=== PATIENT | female | born 1995 | race Caucasian/White ===

== ENCOUNTER → 2016-05-10 | Outpatient (CLI) | payer BC | LOC: RAD 16:42 | PROVIDERS: ATTEND Family Medicine | DX: N20.0 Calculus of kidney (principal) | CPT/HCPCS: 76770 ==

== ENCOUNTER 2016-08-30 14:40 | Emergency (ER) | payer BC ==
--- NOTE | 2016-08-30 15:34 | ER Document Report ---
ED Medical Screen (RME) - General Mode of Arrival: Ambulatory Information source: Patient TRAVEL OUTSIDE OF THE [place] IN LAST 30 DAYS: No - General Chief Complaint: Abdominal Pain Stated Complaint: ABDOMINAL PAIN Time Seen by Provider: 08/30/16 15:13 Notes: Pt presents today with complaints of left sided pelvic pain x2 days. Pt has a history of ovarian cysts and she states this feels similar to her previous cysts. Pt states the pain began suddenly and has progressed since onset. Pt states she is on the depo shot, last receiving one on August 09. Pt denies vomiting, diarrhea, or dysuria. (CICI PATEL) - Related Data Allergies/Adverse Reactions: No Known Allergies Allergy (Unverified 08/30/16 14:43) Past Medical History Renal/ Medical History: Denies: Hx Peritoneal Dialysis Review of Systems - Review of Systems Female Genitourinary: See HPI, Other - left sided pelvic pain Physical Exam - Abdominal Tenderness: Tender - Left pelvic ttp Course - Re-evaluation Re-evalutation: 08/30/16 19:06 I personally performed the services described in the documentation, reviewed and edited the documentation which was dictated to the scribe in my presence, and it accurately records my words and actions. (LUCY CUNNINGHAM) - Vital Signs Vital signs: Temp Pulse Resp BP Pulse Ox 98.3 F 69 16 118/67 97 08/30/16 19:01 08/30/16 19:01 08/30/16 19:01 08/30/16 19:01 08/30/16 19:01 Scribe Documentation - Scribe Written by Hailye:: Michaela Maxwell, 08/30/2016 1553 acting as scribe for :: Ana
[2016-08-30 15:55] LABS: AMORPHOUS SEDIMENT,URINE TRACE /HPF; APPEARANCE,URINE CLOUDY; BILIRUBIN,URINE NEGATIVE (NEGATIVE); GLUCOSE, URINE NEGATIVE (NEGATIVE); KETONES,URINE NEGATIVE (NEGATIVE); LEUKOCYTE ESTERASE,URINE NEGATIVE (NEGATIVE); NITRITE,URINE NEGATIVE (NEGATIVE); PROTEIN,URINE NEGATIVE (NEGATIVE); URINE SPECIFIC GRAVITY 1.011; UROBILINOGEN,URINE NEGATIVE mg/dL (<2.0)
--- NOTE | 2016-08-30 19:03 | ER Document Report ---
ED General - General Chief Complaint: Abdominal Pain Stated Complaint: ABDOMINAL PAIN Time Seen by Provider: 08/30/16 15:13 Mode of Arrival: Ambulatory Information source: Patient Notes: This is a 20-year-old female with a history of multiple ovarian cysts, adhesions and constipation. The patient presents with lower abdominal pain. The patient denies any vaginal discharge, vaginal bleeding. The patient denies any burning on urination. The patient denies fever, chills. TRAVEL OUTSIDE OF THE [place] IN LAST 30 DAYS: No - HPI Onset: Last week Onset/Duration: Gradual Quality of pain: Dull Severity: Moderate Pain Level: 2 Associated symptoms: denies: Chest pain, Fever, Shortness of breath Exacerbated by: Denies Relieved by: Denies Similar symptoms previously: Yes Recently seen / treated by doctor: No - Related Data Allergies/Adverse Reactions: No Known Allergies Allergy (Unverified 08/30/16 14:43) Home Medications: Current Home Medications No Home Medications 08/30/16 [History] Past Medical History - General Information source: Patient - Social History Smoking Status: Current Every Day Smoker Cigarette use (# per day): Yes Chew tobacco use (# tins/day): No Smoking Education Provided: No - half pack per day Frequency of alcohol use: Social Drug Abuse: None Lives with: Family Family History: Reviewed & Not Pertinent Patient has suicidal ideation: No Patient has homicidal ideation: No - Past Medical History Cardiac Medical History: Reports: None Pulmonary Medical History: Reports: None EENT Medical History: Reports: None Neurological Medical History: Reports: None Endocrine Medical History: Reports: None Renal/ Medical History: Reports: Hx Ovarian Cysts Malignancy Medical History: Reports: None GI Medical History: Reports: Other - Constipation Musculoskeltal Medical History: Reports None Skin Medical History: Reports None Psychiatric Medical History: Reports: None Traumatic Medical History: Reports: None Infectious Medical History: Reports: None Past Surgical History: Reports: Hx Gynecologic Surgery - Multiple laparoscopic surgeries for ovarian cysts - Immunizations Hx Diphtheria, Pertussis, Tetanus Vaccination: Yes Review of Systems - Review of Systems Constitutional: denies: Chills, Fever EENT: No symptoms reported Cardiovascular: No symptoms reported Respiratory: No symptoms reported Gastrointestinal: See HPI Genitourinary: No symptoms reported Female Genitourinary: No symptoms reported Musculoskeletal: No symptoms reported Skin: No symptoms reported Hematologic/Lymphatic: No symptoms reported Neurological/Psychological: No symptoms reported Physical Exam - Vital signs Vitals: Temp Pulse Resp BP Pulse Ox 98.1 F 69 18 120/73 99 08/30/16 14:43 08/30/16 14:43 08/30/16 14:43 08/30/16 14:43 08/30/16 14:43 Notes: Physical exam: GENERAL: 20-year-old female, alert and oriented 3, no acute distress HEAD: Normocephalic. EYES: Extraocular movements intact, sclera anicteric, conjunctiva are normal. ENT: Moist mucous membranes. NECK: Normal range of motion, supple LUNGS: Breath sounds clear to auscultation bilaterally and equal. HEART: Regular rate and rhythm without murmurs, rubs or gallops. ABDOMEN: Soft, normoactive bowel sounds. The patient does have mild left adnexal tenderness without rebound or guarding. No masses appreciated. EXTREMITIES: Normal range of motion, no pitting or edema. No clubbing or cyanosis. NEUROLOGICAL: Cranial nerves II through XII grossly intact. Normal speech, moving all extremities PSYCH: Normal mood, normal affect. Bedside ultrasound: No hydronephrosis Course - Re-evaluation Re-evalutation: 08/30/16 19:06 Note: At a long conversation with the patient and her father who is at the bedside. The patient does have a history of multiple ovarian cysts. We are not able to see the ovaries but I have explained to patient that often times when an ovary gets big enough it will push bowel away and become easier to see on ultrasound. 08/30/16 19:06 Repeat exam shows a very soft abdomen without any peritoneal findings. KUB showed a lot of constipation and bilateral renal calculi. I did a bedside ultrasound to look for any hydronephrosis and I did not see any. Based upon this, and had a long discussion with her about changing her dietary habits (she eats a lot of processed food she admits). I will give her some mag citrate to drink slowly to move her bowels. I will have her follow-up with a non destructive testing inspector in the area (she is new to the area) and I will have her follow up with a GI doctor for the possibility of irritable bowel. In the meantime, as mentioned above, she is given a work on her diet and I've advised her to return to the emergency room for worsening pain. - Vital Signs Vital signs: Temp Pulse Resp BP Pulse Ox 97.7 F 78 16 109/74 98 08/30/16 19:46 08/30/16 19:46 08/30/16 19:46 08/30/16 19:46 08/30/16 19:46 - Diagnostic Test Radiology reviewed: Image reviewed, Reports reviewed - Pelvic ultrasound shows no evidence of pathology. They were not able to see the ovaries because of bowel gas and constipation. Case you be shows a lot of constipation Discharge - Discharge Clinical Impression: pelvic pain, constipation Condition: Stable Disposition: HOME, SELF-CARE Additional Instructions: Recommendations: As we discussed, I would like you to drink the magnesium citrate slowly over the next several hours. I would like you to try to convert your diet to a less processed food diet. I like you to try probiotics: Activia twice daily. This is sold next to the [employer] and supermarkets. I would like you to follow-up with a GI doctor for the possibility of irritable bowel. I would like you to establish a non destructive testing inspector as well: I left the number for Dr. Richey. Return to the emergency room for worsening pain, fever (temperature greater than 100.5) or any concerns he getting worse. Referrals: XAVI RICHEY MD [ACTIVE STAFF] - Follow up as needed (This is the number of a non destructive testing inspector) JANE LINK MD [ACTIVE STAFF] - Follow up as needed (This is the number the GI doctor)
[2016-08-30] MEDS ORDERED: MAGNESIUM CITRATE 296 ML BOTTLE PO ONE (19:09)
[2016-08-30 19:49] VITALS: BP 109/74
== END 2016-08-30 19:46 | disposition home or self-care (01) ==
LOC: ER 14:40
DX: R10.2 Pelvic and perineal pain (principal); K59.00 Constipation, unspecified; R10.9 Unspecified abdominal pain; F17.210 Nicotine dependence, cigarettes, uncomplicated
CPT/HCPCS: 99284; 81025; 81001; 74000; 76830; J3490

== ENCOUNTER 2017-05-30 07:48 | Emergency (ER) | payer BC ==
[2017-05-30] MEDS ORDERED: HYDROCODONE/ACETAMINOPHEN 5-325 MG TABLET PO ONE (08:17)
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
--- NOTE | 2017-05-30 08:49 | RADIOLOGY REPORT (SQ) ---
EXAM DESCRIPTION: HAND RIGHT 3 VIEWS COMPLETED DATE/TIME: 05/30/2017 8:34 am REASON FOR STUDY: hand injury COMPARISON: None. EXAM PARAMETERS: NUMBER OF VIEWS: Three views. TECHNIQUE: AP, lateral and oblique radiographic images acquired of the right hand. LIMITATIONS: None. FINDINGS: MINERALIZATION: Normal. BONES: Fracture of the 5th metatarsal head without intra-articular extension. Mild ventral tilt. JOINTS: No effusions. SOFT TISSUES: No soft tissue swelling. No foreign body. OTHER: No other significant finding. IMPRESSION: Fracture of the 5th metatarsal head. TECHNICAL DOCUMENTATION: JOB ID: [id number] [employer]- All Rights Reserved
[2017-05-30 09:19] VITALS: BP 121/82
== END 2017-05-30 09:19 | disposition home or self-care (01) ==
LOC: ER 07:48
PROC: 2W3CX1Z Immobilization of Right Lower Arm using Splint (ICD-10-PCS; principal; 2017-05-30)
DX: S62.339A Displaced fracture of neck of unspecified metacarpal bone, initial encounter for closed fracture (principal); R03.0 Elevated blood-pressure reading, without diagnosis of hypertension; M79.641 Pain in right hand; M79.89 Other specified soft tissue disorders; F17.200 Nicotine dependence, unspecified, uncomplicated; W50.0XXA Accidental hit or strike by another person, initial encounter
CPT/HCPCS: 99283

== ENCOUNTER → 2017-06-08 | Outpatient (CLI) | payer BC ==
--- NOTE | 2017-06-09 07:24 | RADIOLOGY REPORT (SQ) ---
EXAM DESCRIPTION: MRI LT UPPER JOINT WITHOUT COMPLETED DATE/TIME: 06/08/2017 6:09 pm REASON FOR STUDY: PAIN IN LEFT WRIST M25.532 PAIN IN LEFT WRIST COMPARISON: 05/30/2017 radiographs of the hand. TECHNIQUE: Right wrist images acquired and stored on PACS. Multiplanar images include fat sensitive sequences as T1, fluid sensitive sequences as FST2/STIR, cartilage sensitive sequences as FSPD, grad ient echo sequences. LIMITATIONS: None. FINDINGS: BONE MARROW: Marrow edema in the distal pole of the scaphoid. Slightly linear signal on T 1 sequences suggestive of nondisplaced subtle fracture. Marrow signal otherwise normal. CARPAL ALIGNMENT AND ARTICULATION: Normal congruity of sigmoid notch at level of distal RUJ without p ositive or negative ulnar variance. Normal capitolunate angle. No widening of scapholunate articulati on. EFFUSION: None noted. No loose bodies. SCAPHOLUNATE LIGAMENT: Intact without tear. LUNATE-TRIQUETRAL LIGAMENT: Intact without tear. TFC COMPLEX: Radial and ulnar attachments normal. Meniscus intact. Extensor carpi ulnaris tendon norm al without tendinopathy. EXTRINSIC LIGAMENTS AND DISTAL RADIO-ULNAR JOINT: Dorsal and volar distal RUJ intact without subluxat ion of the distal ulna. 1-6 EXTENSOR COMPARTMENTS: Mild deep dorsal fluid overlying the level of the scaphoid. This remains deep to the flexor tendons. CARPAL TUNNEL AND MEDIAN NERVE: Normal volume and morphology of the carpal tunnel proximally at the l evel of the radiocarpal joint and distally at the hook of the hamate. No thickening or signal alterat ion of the median nerve. OTHER: No other significant finding. IMPRESSION: 1. Contusion and probable associated subtle nondisplaced fracture in the distal pole of the scaphoid. Marrow signal otherwise looks normal. 2. Ligaments and tendons in the wrist generall y normal. Normal carpal alignment. TECHNICAL DOCUMENTATION: JOB ID: [id number] [employer]- All Rights Reserved
== END ==
LOC: RAD 16:49
PROVIDERS: ATTEND Orthopaedic Surgery
DX: S60.212A Contusion of left wrist, initial encounter (principal); X58.XXXA Exposure to other specified factors, initial encounter; M25.432 Effusion, left wrist

== ENCOUNTER 2018-12-04 19:26 | Emergency (ER) | payer SELFPAY ==
[2018-12-04 20:02] VITALS: BP 114/75
[2018-12-04] MEDS ORDERED: OXYCODONE-ACETAMINOPHEN 5-325 MG TABLET PO ONE (20:23)
[2018-12-04] MEDS ORDERED: PROMETHAZINE HCL 25 MG TABLET PO ONE (20:23)
--- NOTE | 2018-12-04 20:25 | ER Document Report ---
ED Medical Screen (RME) - General Chief Complaint: Lower Abdominal Pain Stated Complaint: LOWER ABDOMINAL PAIN Time Seen by Provider: 12/04/18 20:23 Primary Care Provider: IVETTE LIU DO [Primary Care Provider] - Follow up as needed Notes: 23-year-old female chief complaint of sharp pain in the left lower abdomen/pelvis starting yesterday, reports history of multiple large ovarian cysts and she has had a total of 4 ovarian cysts removed previously. She denies vomiting, fever, vaginal bleeding or discharge, flank pain. She also has a history of appendectomy and kidney stones. TRAVEL OUTSIDE OF THE [place] IN LAST 30 DAYS: No - Related Data Allergies/Adverse Reactions: No Known Allergies Allergy (Unverified 08/30/16 14:43) Past Medical History Renal/ Medical History: Reports: Hx Ovarian Cysts. Denies: Hx Peritoneal Dialysis Past Surgical History: Reports: Hx Gynecologic Surgery - Multiple laparoscopic surgeries for ovarian cysts - Immunizations Hx Diphtheria, Pertussis, Tetanus Vaccination: Yes Physical Exam - Vital signs Vitals: Temp Pulse Resp BP Pulse Ox 97.9 F 58 L 20 114/75 99 12/04/18 20:00 12/04/18 20:00 12/04/18 20:00 12/04/18 20:00 12/04/18 20:00 - Abdominal Tenderness: Tender - Tender in the left and general lower abdomen, right abdomen benign, upper abdomen benign, no rigidity or guarding. Course - Re-evaluation Re-evalutation: I have greeted and performed a rapid initial assessment of this patient. A com prehensive ED assessment and evaluation of the patient, analysis of test results and completion of the medical decision making process will be conducted by additional ED providers. - Vital Signs Vital signs: Temp Pulse Resp BP Pulse Ox 97.9 F 58 L 20 114/75 99 12/04/18 20:00 12/04/18 20:00 12/04/18 20:00 12/04/18 20:00 12/04/18 20:00 Doctor's Discharge - Discharge Referrals: IVETTE LIU DO [Primary Care Provider] - Follow up as needed
--- NOTE | 2018-12-04 22:09 | RADIOLOGY REPORT (SQ) ---
EXAM DESCRIPTION: US PELVIS TRANSVAGINAL COMPLETED DATE/TME: 12/04/2018 20:23 CLINICAL HISTORY: 23 years, Female, left pelvic pain, hx large cysts COMPARISON: None. TECHNIQUE: Emergent pelvic ultrasound LIMITATIONS: None. FINDINGS: The uterus measures 6.8 x 4.4 x 2.4 cm. The endometrium measures 3 mm in thickness. The myometrium is homogenous. The right ovary measures 1.9 x 1.6 x 1.3 cm, the left measures 2.1 x 1.9 x 1.7 cm. Doppler and spectral analysis with color flow shows arterial and venous flow to both ovaries. No solid adnexal mass. Bilateral ovarian follicles. 1.7 x 1.6 cm cyst of the left ovary likely reflects dominant follicle. No free fluid IMPRESSION: Unremarkable pelvic ultrasound. 1.7 x 1.6 cm left ovarian cyst likely reflects a dominant follicle. This does not require follow-up. Recommendations for f/u of ovarian anechoic simple cyst, simple cyst with single thin <3 mm septation, or focal calcification in wall of cyst (1): Pre-menopause: <= 5 cm No follow-up imaging recommended >5 cm - <=7 cm US f/u annually >7 cm Consider MR w/IVC or surgical evaluation Post-menopause (>=1 year from last menstrual period): <=3 cm No follow-up imaging recommended >3 cm - <=7 cm US f/u annually >7 cm Consider MR w/IVC or surgical evaluation (1) Recommendations based on 2010 SRU Consensus Conference Statement on the Management of Asymptomatic Ovarian and Other Adnexal Cysts Imaged at US: Radiology. 2009;256(3):943-43 copyright 2010 [employer]- All Rights Reserved
[2018-12-04 22:23] LABS: ABSOLUTE EOSINOPHILS # (AUTO) 0.1 10^3/uL (0.0-0.6); ABSOLUTE LYMPHOCYTES (AUTO) 2.2 10^3/uL (0.5-4.7); ABSOLUTE MONOCYTES (AUTO) 0.4 10^3/uL (0.1-1.4); ABSOLUTE NEUT (AUTO) 4.3 10^3/uL (1.7-8.2); BASOPHILS % (AUTO) 0.5 % (0-2); EOSINOPHILS % (AUTO) 1.3 % (0-6); HEMATOCRIT 52.2 % (36.0-47.0); HEMOGLOBIN 17.2 g/dL (12.0-15.5); LYMPHOCYTES % (AUTO) 30.7 % (13-45); MEAN CORPUSCULAR HEMOGLOBIN 31.3 pg (27.0-33.4); MEAN CORPUSCULAR VOLUME 95 fl (80-97); MONOCYTES % (AUTO) 6.3 % (3-13); PLATELET COUNT 223 10^3/uL (150-450); RED CELL DISTRIBUTION WIDTH 14.5 % (11.5-14.0); SEGMENTED NEUTROPHILS % (AUTO) 61.2 % (42-78); TOTAL CELLS COUNTED % (AUTO) 100 %
[2018-12-04 22:39] LABS: ANION GAP 7 (5-19); BLOOD UREA NITROGEN 5 mg/dL (7-20); CALCIUM 9.5 mg/dL (8.4-10.2); CARBON DIOXIDE 29 mmol/L (22-30); CHLORIDE 103 mmol/L (98-107); GLUCOSE 90 mg/dL (75-110); POTASSIUM 4.1 mmol/L (3.6-5.0)
[2018-12-05 00:08] LABS: APPEARANCE,URINE CLEAR; BILIRUBIN,URINE NEGATIVE (NEGATIVE); COLOR,URINE YELLOW; GLUCOSE, URINE NEGATIVE (NEGATIVE); KETONES,URINE TRACE mg/dL (NEGATIVE); LEUKOCYTE ESTERASE,URINE NEGATIVE (NEGATIVE); NITRITE,URINE NEGATIVE (NEGATIVE); PROTEIN,URINE NEGATIVE (NEGATIVE); URINE SPECIFIC GRAVITY 1.014; UROBILINOGEN,URINE NEGATIVE mg/dL (<2.0)
--- NOTE | 2018-12-05 01:21 | ER Document Report ---
ED General - General Chief Complaint: Lower Abdominal Pain Stated Complaint: LOWER ABDOMINAL PAIN Time Seen by Provider: 12/04/18 20:23 Primary Care Provider: IVETTE LIU DO [Primary Care Provider] - Follow up as needed Notes: Patient is a 23-year-old female with history of ovarian cysts that presents to the emergency department for chief complaint of left-sided pelvic pain. Patient reports that this pain started a few days ago, and has progressed and stayed constant at around a 5 out of 10 in pain severity, describes as a constant aching pain is occasionally sharp. She states she is had ovarian cyst in the past and this feels very similar. She is had have surgeries because they grow and get larger. She has had 4 procedures in the past. She denies having any dysuria, hematuria, does not believe that she is . She has had some nausea associated with this without vomiting., Denies any diarrhea, fevers, chills, night sweats. Past Medical History: Ovarian cyst Past Surgical History: Laparoscopy for ovarian cyst Social History: Denies tobacco, alcohol or drug use. Family History: Reviewed and noncontributory for presenting illness Allergies: Reviewed, see documented allergy list. REVIEW OF SYSTEMS: Other than noted above, the 12 point review of systems was reviewed with the patient and were negative, all pertinent findings are included in the HPI. PHYSICAL EXAMINATION: Vital signs reviewed, nursing noted reviewed. GENERAL: Well-appearing, well-nourished and in no acute distress. HEAD: Atraumatic, normocephalic. EYES: Eyes appear normal, extraocular movements intact, sclera anicteric, conjunctiva are normal. ENT: nares patent, oropharynx clear without exudates. Moist mucous membranes. NECK: Normal range of motion, supple without lymphadenopathy LUNGS: Breath sounds clear to auscultation bilaterally and equal. No wheezes rales or rhonchi. HEART: Regular rate and rhythm without murmurs ABDOMEN: Soft, left lower quadrant tenderness to palpation, normoactive bowel sounds. No rebound, guarding, or rigidity. No masses appreciated. EXTREMITIES: Nontender, good range of motion, no pitting or edema. NEUROLOGICAL: No focal neurological deficits. Moves all extremities spontaneously Motor and sensory grossly intact on exam. PSYCH: Normal mood, normal affect. SKIN: Warm, Dry, normal turgor, no rashes or lesions noted on exposed skin TRAVEL OUTSIDE OF THE U.S. IN LAST 30 DAYS: No - Related Data Allergies/Adverse Reactions: No Known Allergies Allergy (Unverified 08/30/16 14:43) Past Medical History - Social History Smoking Status: Current Some Day Smoker Chew tobacco use (# tins/day): No Frequency of alcohol use: Social Drug Abuse: None Family History: Reviewed & Not Pertinent Patient has suicidal ideation: No Patient has homicidal ideation: No Renal/ Medical History: Reports: Hx Kidney Stones, Hx Ovarian Cysts. Denies: Hx Peritoneal Dialysis Past Surgical History: Reports: Hx Appendectomy, Hx Gynecologic Surgery - Multiple laparoscopic surgeries for ovarian cysts - Immunizations Hx Diphtheria, Pertussis, Tetanus Vaccination: Yes Physical Exam - Vital signs Vitals: Temp Pulse Resp BP Pulse Ox 97.9 F 58 L 20 114/75 99 12/04/18 20:00 12/04/18 20:00 12/04/18 20:00 12/04/18 20:00 12/04/18 20:00 Course - Re-evaluation Re-evalutation: Patient seen and examined vital signs reviewed. Laboratory data and/or imaging were ordered as appropriate for the patient's presenting symptoms and complaint, with consideration of any critical or life threatening conditions that may be associated with their obtained history and exam as noted above. Patient was treated with Percocet and Phenergan as ordered by triage provider Results were reviewed when available and demonstrated transvaginal ultrasound demonstrated a left ovarian cyst, otherwise is unremarkable, no signs of torsion, her blood work was otherwise unremarkable as well. Patient was given Toradol 60 mg IM. The patient was re-evaluated and was stable Evaluation was most consistent with left pelvic pain, likely secondary to ovarian cyst, advised follow-up with the women's health care group, given prescription for naproxen and [place] to take only if needed. Results were discussed with the patient at this point, after careful consideration I feel that that patient can be discharged from the emergency department, the patient was educated treatments and reasons to return to the emergency department based on their presumed diagnosis as noted above, they were advised to followup with a primary care physician in 2-3 days. Patient was agre eable to plan of care. *Note is created using voice recognition software and may contain spelling, syntax or grammatical errors. Laboratory 12/04/18 12/04/18 12/04/18 22:09 22:09 23:35 WBC 7.0 RBC 5.50 H Hgb 17.2 H Hct 52.2 H MCV 95 MCH 31.3 MCHC 33.0 RDW 14.5 H Plt Count 223 Seg Neutrophils % 61.2 Lymphocytes % 30.7 Monocytes % 6.3 Eosinophils % 1.3 Basophils % 0.5 Absolute Neutrophils 4.3 Absolute Lymphocytes 2.2 Absolute Monocytes 0.4 Absolute Eosinophils 0.1 Absolute Basophils 0.0 Sodium 139.4 Potassium 4.1 Chloride 103 Carbon Dioxide 29 Anion Gap 7 BUN 5 L Creatinine 0.63 Est GFR ( Amer) > 60 Est GFR (Non-Af Amer) > 60 Glucose 90 Calcium 9.5 Urine Color YELLOW Urine Appearance CLEAR Urine pH 6.0 Ur Specific [place] 1.014 Urine Protein NEGATIVE Urine Glucose (UA) NEGATIVE Urine Ketones TRACE H Urine Blood NEGATIVE Urine Nitrite NEGATIVE Urine Bilirubin NEGATIVE Urine Urobilinogen NEGATIVE Ur Leukocyte Esterase NEGATIVE Urine WBC (Auto) 1 Urine RBC (Auto) 0 Squamous Epi Cells Auto <1 Urine Mucus (Auto) FEW Urine Ascorbic Acid NEGATIVE Urine HCG, Qual NEGATIVE Transvaginal US 12/04/18 20:23 IMPRESSION: Unremarkable pelvic ultrasound. 1.7 x 1.6 cm left ovarian cyst likely reflects a dominant follicle. This does not require follow-up. Recommendations for f/u of ovarian anechoic simple cyst, simple cyst with single thin <3 mm septation, or focal calcification in wall of cyst (1): Pre-menopause: <= 5 cm No follow-up imaging recommended >5 cm - <=7 cm US f/u annually >7 cm Consider MR w/IVC or surgical evaluation Post-menopause (>=1 year from last menstrual period): <=3 cm No follow-up imaging recommended >3 cm - <=7 cm US f/u annually >7 cm Consider MR w/IVC or surgical evaluation (1) Recommendations based on 2010 SRU Consensus Conference Statement on the Management of Asymptomatic Ovarian and Other Adnexal Cysts Imaged at US: Radiology. 2009;256(3):943-54 copyright 2011 [employer]- All Rights Reserved - Vital Signs Vital signs: Temp Pulse Resp BP Pulse Ox 97.9 F 58 L 20 114/75 99 12/04/18 20:00 12/04/18 20:00 12/04/18 20:00 12/04/18 20:00 12/04/18 20:00 - Laboratory Result Diagrams: 12/04/18 22:09 12/04/18 22:09 Laboratory results interpreted by me: 12/04/18 12/04/18 12/04/18 22:09 22:09 23:35 RBC 5.50 H Hgb 17.2 H Hct 52.2 H RDW 14.5 H BUN 5 L Urine Ketones TRACE H Discharge - Discharge Clinical Impression: Pelvic pain Ovarian cyst Qualifiers: Laterality: left Qualified Code(s): N83.202 - Unspecified ovarian cyst, left side Condition: Stable Disposition: HOME, SELF-CARE Instructions: Ovarian Cyst ([facility]) Additional Instructions: Please follow-up with the women's health care group, take the prescribed medications only as directed, and if your symptoms worsen or do not improve, do not hesitate to return to the emergency department. Prescriptions: Hydrocodone/Acetaminophen [[place] 5-325 mg Tablet] 1 tab PO Q8H PRN #10 tablet PRN Reason: abdominal pain Naproxen [Naprosyn] 500 mg PO BID PRN #30 tablet PRN Reason: abdominal pain Referrals: [facility] [Provider Group] - Follow up in 3-5 days
[2018-12-05] MEDS ORDERED: KETOROLAC TROMETHAMINE 60 MG/2 ML SDV IM ONE (01:28)
== END 2018-12-05 02:09 | disposition home or self-care (01) ==
LOC: ER 19:26
DX: N83.202 Unspecified ovarian cyst, left side (principal); R10.2 Pelvic and perineal pain; R10.30 Lower abdominal pain, unspecified; F17.200 Nicotine dependence, unspecified, uncomplicated; Z87.442 Personal history of urinary calculi
CPT/HCPCS: 36415; 85025; 81025; 80048; 81001; 76830; 93976; J1885; 96374; 99284

== ENCOUNTER 2019-03-22 11:47 | Emergency (ER) | payer SELFPAY ==
[2019-03-22] MEDS ORDERED: IBUPROFEN 800 MG TABLET PO ONE (12:40)
--- NOTE | 2019-03-22 12:48 | ER Document Report ---
ED Medical Screen (RME) - General Chief Complaint: Back Pain Stated Complaint: CHEST/BACK/SIDE PAIN, FEVER Time Seen by Provider: 03/22/19 12:27 Primary Care Provider: IVETTE LIU DO [Primary Care Provider] - Follow up as needed Mode of Arrival: Ambulatory Information source: Patient TRAVEL OUTSIDE OF THE U.S. IN LAST 30 DAYS: No - HPI Notes: 03/22/19 12:40 23-year-old female presents to the emergency for c/o of right greater than left lower back pain for 3 weeks that is now moving to her abdomen with fevers of 102F over last 3 nights. Patient states she does have history of kidney stones, but has never passed a kidney stone. Pain is become progressive, 5/10. Spine movement was over a week ago. Patient she did get her flu shot 2 weeks ago, denies any flulike symptoms, cough, sore throat, nausea vomiting diarrhea, CP or shortness of breath, recent trauma, falls, weakness. Patient does report loss of appetite over the last week patient. She was seen by her primary care doctor, Dr. Webster, 2 weeks ago, was placed on Voltaren gel another no NSAID which she states slightly helped. She also receieved a depo shot at that time, has not been on a depo shot in 1 yr. However, she cannot follow-up with him because she did lose her insurance. I have greeted and performed a rapid initial assessment of this patient. A comprehensive ED assessment and evaluation of the patient, analysis of test results and completion of the medical decision making process will be conducted by additional ED providers. PHYSICAL EXAMINATION: GENERAL: Well-appearing, well-nourished and in no acute distress. HEAD: Atraumatic, normocephalic. EYES: Pupils equal round extraocular movements intact, conjunctiva are normal. ENT: Nares patent NECK: Normal range of motion LUNGS: No respiratory distress Musculoskeletal: Normal range of motion. R CVA tenderness only. NEUROLOGICAL: Normal speech, normal gait. Pain with flexion and extension at 30 degrees, no noted paraspinal tenderness. Strength 5 out of 5 in bilateral lower extremities equally. no spinal tenderness. Not Femoral pulses + 2 bilaterally and equally. No abrasions, scars, lacerations, ecchymosis of any recent trauma. normal gait. PSYCH: Normal mood, normal affect. SKIN: Warm, Dry, normal turgor, no rashes or lesions noted. - Related Data Allergies/Adverse Reactions: No Known Allergies Allergy (Unverified 08/30/16 14:43) Past Medical History - Social History Chew tobacco use (# tins/day): No Frequency of alcohol use: None Drug Abuse: None Renal/ Medical History: Reports: Hx Kidney Stones, Hx Ovarian Cysts. Denies: Hx Peritoneal Dialysis Past Surgical History: Reports: Hx Appendectomy, Hx Gynecologic Surgery - Multiple laparoscopic surgeries for ovarian cysts - Immunizations Hx Diphtheria, Pertussis, Tetanus Vaccination: Yes Physical Exam - Vital signs Vitals: Temp Pulse Resp BP Pulse Ox 98.3 F 100 16 104/67 98 03/22/19 11:59 03/22/19 11:59 03/22/19 11:59 03/22/19 11:59 03/22/19 11:59 Course - Vital Signs Vital signs: Temp Pulse Resp BP Pulse Ox 98.3 F 100 16 104/67 98 03/22/19 12:35 03/22/19 12:35 03/22/19 12:35 03/22/19 12:35 03/22/19 12:35 Doctor's Discharge - Discharge Referrals: IVETTE LIU DO [Primary Care Provider] - Follow up as needed
[2019-03-22 13:01] LABS: ABSOLUTE LYMPHOCYTES (AUTO) 2.2 10^3/uL (0.5-4.7); ABSOLUTE MONOCYTES (AUTO) 2.1 10^3/uL (0.1-1.4); ABSOLUTE NEUT (AUTO) 10.1 10^3/uL (1.7-8.2); BASOPHILS % (AUTO) 0.3 % (0-2); EOSINOPHILS % (AUTO) 0.3 % (0-6); HEMATOCRIT 42.3 % (36.0-47.0); HEMOGLOBIN 14.2 g/dL (12.0-15.5); MEAN CORPUSCULAR HEMOGLOBIN 30.8 pg (27.0-33.4); MEAN CORPUSCULAR HGB CONC 33.7 g/dL (32.0-36.0); MEAN CORPUSCULAR VOLUME 91 fl (80-97); MONOCYTES % (AUTO) 14.6 % (3-13); PLATELET COUNT 265 10^3/uL (150-450); RED BLOOD COUNT 4.63 10^6/uL (3.72-5.28); RED CELL DISTRIBUTION WIDTH 13.8 % (11.5-14.0); SEGMENTED NEUTROPHILS % (AUTO) 69.8 % (42-78); TOTAL CELLS COUNTED % (AUTO) 100 %; WHITE BLOOD COUNT 14.5 10^3/uL (4.0-10.5)
[2019-03-22 13:22] LABS: ALBUMIN 3.6 g/dL (3.5-5.0); ALKALINE PHOSPHATASE 125 U/L (38-126); ANION GAP 13 (5-19); ASPARTATE AMINO TRANSFERASE 21 U/L (14-36); BILIRUBIN,DIRECT 0.3 mg/dL (0.0-0.4); BILIRUBIN,TOTAL 0.5 mg/dL (0.2-1.3); BLOOD UREA NITROGEN 10 mg/dL (7-20); CALCIUM 9.8 mg/dL (8.4-10.2); CARBON DIOXIDE 27 mmol/L (22-30); CHLORIDE 100 mmol/L (98-107); GLUCOSE 86 mg/dL (75-110); POTASSIUM 3.5 mmol/L (3.6-5.0); TOTAL PROTEIN 6.9 g/dL (6.3-8.2)
[2019-03-22 13:23] LABS: APPEARANCE,URINE SLIGHTLY-CLOUDY; BILIRUBIN,URINE NEGATIVE (NEGATIVE); COLOR,URINE YELLOW; GLUCOSE, URINE NEGATIVE (NEGATIVE); KETONES,URINE 20 mg/dL (NEGATIVE); LEUKOCYTE ESTERASE,URINE LARGE (NEGATIVE); NITRITE,URINE POSITIVE (NEGATIVE); PROTEIN,URINE 30 mg/dL (NEGATIVE); URINE SPECIFIC GRAVITY 1.011; UROBILINOGEN,URINE NEGATIVE mg/dL (<2.0)
[2019-03-22] MEDS ORDERED: CEFTRIAXONE 1 GM/D5W RTU 1 GM/50 ML RTUPB IV ONE (13:47)
--- NOTE | 2019-03-22 14:27 | ER Document Report ---
Entered by EARL COON SCRIBE 03/22/19 1339 Acting as scribe for:NATALIE JON MD ED General - General Chief Complaint: Back Pain Stated Complaint: CHEST/BACK/SIDE PAIN, FEVER Time Seen by Provider: 03/22/19 12:27 Primary Care Provider: [facility] [Provider Group] - 03/23/19 11:00 am Mode of Arrival: Ambulatory Information source: Patient, [facility] Records Notes: This 23 year old female patient presents to the ED today with complaints of lower back pain that has recently radiated to her right flank. Patient states that the back pain started 2 1/2 weeks ago and she describes the pain as aching that worsens with certain movements. Patient notes that she has had fevers on and off for the past x3 days with the highest being 101.9 F. Patient complains of decreased appetite but denies nausea or vomiting. Patients also notes that she was prescribed Voltaren for the back pain x3-4 days ago. TRAVEL OUTSIDE OF THE U.S. IN LAST 30 DAYS: No - Related Data Allergies/Adverse Reactions: No Known Allergies Allergy (Unverified 08/30/16 14:43) Past Medical History - General Information source: Patient, [facility] Records - Social History Smoking Status: Never Smoker Cigarette use (# per day): No Chew tobacco use (# tins/day): No Frequency of alcohol use: None Drug Abuse: None Family History: Reviewed & Not Pertinent Patient has suicidal ideation: No Patient has homicidal ideation: No Renal/ Medical History: Reports: Hx Kidney Stones, Hx Ovarian Cysts Past Surgical History: Reports: Hx Appendectomy, Hx Gynecologic Surgery - Multiple laparoscopic surgeries for ovarian cysts - Immunizations Hx Diphtheria, Pertussis, Tetanus Vaccination: Yes Review of Systems - Review of Systems Constitutional: See HPI, Fever - off and on for the past x3 days; highest was 101.9F EENT: No symptoms reported Cardiovascular: No symptoms reported Respiratory: No symptoms reported Gastrointestinal: See HPI, Poor appetite Genitourinary: See HPI, Flank pain - right-sided flank pain Female Genitourinary: No symptoms reported Musculoskeletal: See HPI, Back pain - lower back pain Skin: No symptoms reported Hematologic/Lymphatic: No symptoms reported Neurological/Psychological: No symptoms reported -: Yes All other systems reviewed and negative Physical Exam - Vital signs Vitals: Temp Pulse Resp BP Pulse Ox 98.3 F 100 16 104/67 98 03/22/19 11:59 03/22/19 11:59 03/22/19 11:59 03/22/19 11:59 03/22/19 11:59 Interpretation: Normal - General General appearance: Appears well, Alert In distress: None - HEENT Head: Normocephalic, Atraumatic Eyes: Normal Pupils: PERRL - Respiratory Respiratory status: No respiratory distress Chest status: Nontender Breath sounds: Normal Chest palpation: Normal - Cardiovascular Rhythm: Regular Heart sounds: Normal auscultation Murmur: No - Abdominal Inspection: Normal Distension: No distension Bowel sounds: Normal - active bowel sounds Tenderness: Tender - RUQ tenderness Organomegaly: No organomegaly - Back Back: Tender - lumbar back musculature tenderness, CVA tenderness - right CVA percussion tenderness - Extremities General upper extremity: Normal inspection General lower extremity: Normal inspection. No: Norah's sign - Neurological Neuro grossly intact: Yes - Psychological Associated symptoms: Normal affect, Normal mood - Skin Skin Temperature: Warm Skin Moisture: Dry Skin Color: Normal Course - Vital Signs Vital signs: Temp Pulse Resp BP Pulse Ox 98.3 F 100 16 104/67 98 03/22/19 12:35 03/22/19 12:35 03/22/19 12:35 03/22/19 12:35 03/22/19 12:35 - Laboratory Result Diagrams: 03/22/19 12:50 03/22/19 12:50 Laboratory results interpreted by me: 03/22/19 03/22/19 03/22/19 12:50 12:50 12:50 WBC 14.5 H Kaufman % (Auto) 14.6 H Absolute Neuts (auto) 10.1 H Absolute Monos (auto) 2.1 H Potassium 3.5 L Urine Protein 30 H Urine Ketones 20 H Urine Blood MODERATE H Urine Nitrite POSITIVE H Ur Leukocyte Esterase LARGE H - Diagnostic Test Radiology reviewed: Image reviewed, Reports reviewed - Noncontrast CT scan of the abdomen pelvis shows a 5 mm stone in the right UPJ with moderate right hydronephrosis and perinephric stranding. - Consults Dr. Chaudhary Time consulted: 15:10 Consulted provider: follow-up in office - Agrees with outpatient management at this time, and follow-up in the [place] office with Dr. Philip tomorrow. Discharge - Discharge Clinical Impression: Obstruction of right ureteropelvic junction (UPJ) due to stone Urinary tract infection Qualifiers: Urinary tract infection type: acute pyelonephritis Qualified Code(s): N10 - Acute pyelonephritis Condition: Stable Disposition: HOME, SELF-CARE Additional Instructions: Kidney Stone: You are passing a kidney stone. These stones are usually due to increased calcium or uric acid concentrations in your urine. Stones within the kidney itself are not painful. The pain occurs as the stone leaves the kidney to pass down the long tube, called the ureter, leading to the bladder. If the pain is very severe or if vomiting prevents you from taking oral pain medications, you may need to return for further treatment. Drink three or four quarts of fluids per day. Take the Voltaren you are prescribed for pain (if needed). If your doctor has asked you to bring the stone in for analysis, return with the stone once it has passed. Return if pain or vomiting become severe, if you develop a high fever, if you are unable to pass your urine, or if other unusual symptoms occur. * Take the Cipro antibiotic as prescribed. Take your first dose this evening at bedtime. Take the Voltaren you are prescribed for pain control. Take the Zofran as prescribed for nausea if needed. Drink plenty of fluids throughout the day in the evening. Follow-up with [facility] at the [place] office tomorrow morning at 11:00 AM. The office is located at [address] in [place], [place]. Take the CD of the CT scan, and copies of the lab work with you to the office visit. RETURN TO THE EMERGENCY ROOM IF ANY NEW OR WORSENING SYMPTOMS. Prescriptions: Ciprofloxacin HCl [Cipro 500 mg Tablet] 500 mg PO BID #14 tablet Ondansetron [Zofran Odt 4 mg Tablet] 1 - 2 tab PO Q4H #10 tab.rapdis Referrals: [facility] [Provider Group] - 03/23/19 11:00 am Scribe Attestation: 03/22/19 13:58 I personally performed the services described in the documentation, reviewed and edited the documentation which was dictated to the scribe in my presence, and it accurately records my words and actions. I personally performed the services described in the documentation, reviewed and edited the documentation which was dictated to the scribe in my presence, and it accurately records my words and actions.
--- NOTE | 2019-03-22 14:32 | RADIOLOGY REPORT (SQ) ---
EXAM DESCRIPTION: CT ABD/PELVIS NO ORAL OR IV COMPLETED DATE/TIME: 03/22/2019 1:32 pm REASON FOR STUDY: right flank pain, LBP, hx of renal stones, fevers COMPARISON: Bilateral renal ultrasound 05/10/2016 TECHNIQUE: CT scan of the abdomen and pelvis performed without intravenous or oral contrast. Images reviewed with lung, soft tissue, and bone windows. Reconstructed coronal and sagittal MPR images revi ewed. All images stored on PACS. All CT scanners at this facility use dose modulation, iterative reconstruction, and/or weight based d osing when appropriate to reduce radiation dose to as low as reasonably achievable (ALARA). [facility]: Dose Right [facility]: CareDose [facility]: Dose Right [facility]: Teradose 4D [facility]: [employer] RADIATION DOSE: CT Rad equipment meets quality standard of care and radiation dose reduction techniq ues were employed. CTDIvol: 4.8 mGy. DLP: 261 mGy-cm.mGy. LIMITATIONS: None. FINDINGS: A 5 mm calculus is present in the right ureteropelvic junction at the level of the L4 torrez sverse process. This causes moderate right hydronephrosis and perinephric stranding in the retroperi toneal fat. No other right-sided urinary stones are identified. No right renal cysts or masses. LOWER CHEST: No significant findings. No nodules or infiltrates. NON-CONTRASTED LIVER, SPLEEN, ADRENALS: Evaluation limited by lack of IV contrast. No identified sign ificant masses. PANCREAS: No masses. No peripancreatic inflammatory changes. GALLBLADDER: Contracted, not well seen RIGHT KIDNEY AND URETER: As above. LEFT KIDNEY AND URETER: No suspicious masses. Assessment limited by lack of IV contrast. Multiple t iny left-sided intrarenal nonobstructive stones. No left ureteral calculi No hydronephrosis or hyd roureter. AORTA AND RETROPERITONEUM: No aneurysm. No retroperitoneal masses or adenopathy. BOWEL AND PERITONEAL CAVITY: No obvious masses or inflammatory changes. No free fluid. APPENDIX: Not visualized PELVIS, BLADDER, AND ABDOMINAL WALL:No abnormal masses. No free fluid. Bladder normal. Normal size f emale pelvic organs BONES: No significant findings. OTHER: No other significant finding. IMPRESSION: 5 mm stone in the right upper ureter at the ureteral pelvic junction, moderate right hyd ronephrosis and perinephric stranding. Concurrent pyelonephritis may be present COMMENT: Quality ID # [id number]: Final reports with documentation of one or more dose reduction techniques (e.g., Automated exposure control, adjustment of the mA and/or kV according to patient size, use of iterative reconstruction technique) TECHNICAL DOCUMENTATION: JOB ID: [id number] [employer]- All Rights Reserved Reading location - IP/workstation name: [email or web address]
[2019-03-22] MEDS ORDERED: NORMAL SALINE 1000 ML 1,000 ML IV ONE (14:52)
[2019-03-22] MEDS ORDERED: CIPROFLOXACIN HCL 500 MG TABLET PO ONE (15:30)
[2019-03-22 16:08] VITALS: BP 118/73
--- NOTE | 2019-03-22 19:13 | EKG REPORT ---
SEVERITY:- ABNORMAL ECG - SINUS RHYTHM PROBABLE LVH WITH SECONDARY REPOL ABNRM : Confirmed by: Modesta Colby MD 22-Mar-2019 19:12:43
== END 2019-03-22 16:07 | disposition home or self-care (01) ==
LOC: ER 11:47
DX: N13.2 Hydronephrosis with renal and ureteral calculous obstruction (principal); N10 Acute pyelonephritis; M54.5 Low back pain; R10.9 Unspecified abdominal pain; R10.811 Right upper quadrant abdominal tenderness; R50.9 Fever, unspecified; R63.0 Anorexia
CPT/HCPCS: 93005; 99284; 96361; 96365; 36415; 87040; 87086; 83690; 85025; 81025; 87088; 80053; 81001; 87186; 74176; 93010; J7030; J0696

== ENCOUNTER 2019-10-09 23:37 | Emergency (ER) | payer BC ==
[2019-10-09] MEDS ORDERED: RINGERS SOLUTION,LACTATED 1,000 ML IV ONE (23:48)
[2019-10-09] MEDS ORDERED: KETOROLAC TROMETHAMINE INJ/PF 30 MG/1 ML SDV IV ONE (23:49)
[2019-10-09] MEDS ORDERED: ONDANSETRON HCL INJ/PF 4 MG/2 ML SDV IV ONE (23:49)
--- NOTE | 2019-10-09 23:50 | ER Document Report ---
ED Medical Screen (RME) - General Chief Complaint: Back Pain Stated Complaint: BACK/KIDNEY PAIN Time Seen by Provider: 10/09/19 23:45 Primary Care Provider: MICHELLE KNOTT DO [Primary Care Provider] - Follow up as needed Mode of Arrival: Ambulatory Information source: Patient Notes: HPI; 24-year-old female complaining of bilateral flank pain for the past 2 days. History of kidney stones and infections. Also history of stents and removal of stone. She denies fever. Decreased appetite. Positive for nausea and vomiting. Pain after completion of urination. Denies . PE: Alert and oriented x3. Moderate distress noted. Lungs: Clear to auscultation without rales, rhonchi, wheezes. Heart: Regular rate rhythm without murmurs, rubs, gallops. Bilateral CVA tenderness is noted. I have greeted and performed a rapid initial assessment of this patient. A comprehensive ED assessment and evaluation of the patient, analysis of test results and completion of the medical decision making process will be conducted by additional ED providers. I have specifically instructed the patient or family members with the patient to immediately return to any nursing staff should anything change in the patient's condition or with their chief complaint. TRAVEL OUTSIDE OF THE [place].S. IN LAST 30 DAYS: No - Related Data Allergies/Adverse Reactions: No Known Allergies Allergy (Unverified 08/30/16 14:43) Past Medical History Renal/ Medical History: Reports: Hx Kidney Stones, Hx Ovarian Cysts. Denies: Hx Peritoneal Dialysis Past Surgical History: Reports: Hx Appendectomy, Hx Gynecologic Surgery - Multiple laparoscopic surgeries for ovarian cysts - Immunizations Hx Diphtheria, Pertussis, Tetanus Vaccination: Yes Physical Exam - Vital signs Vitals: Temp Pulse Resp BP Pulse Ox 97.9 F 94 20 149/89 H 100 10/09/19 23:41 10/09/19 23:41 10/09/19 23:41 10/09/19 23:41 10/09/19 23:41 Course - Vital Signs Vital signs: Temp Pulse Resp BP Pulse Ox 97.9 F 94 20 149/89 H 100 10/09/19 23:41 10/09/19 23:41 10/09/19 23:41 10/09/19 23:41 10/09/19 23:41 Doctor's Discharge - Discharge Referrals: NIKOS,MICHELLE, DO [Primary Care Provider] - Follow up as needed
[2019-10-10 00:24] LABS: APPEARANCE,URINE CLEAR; BILIRUBIN,URINE NEGATIVE (NEGATIVE); COLOR,URINE COLORLESS; GLUCOSE, URINE NEGATIVE (NEGATIVE); KETONES,URINE NEGATIVE (NEGATIVE); LEUKOCYTE ESTERASE,URINE NEGATIVE (NEGATIVE); NITRITE,URINE NEGATIVE (NEGATIVE); PROTEIN,URINE NEGATIVE (NEGATIVE); UROBILINOGEN,URINE NEGATIVE mg/dL (<2.0)
[2019-10-10 00:24] LABS: ABSOLUTE LYMPHOCYTES (AUTO) 1.7 10^3/uL (0.5-4.7); ABSOLUTE MONOCYTES (AUTO) 0.4 10^3/uL (0.1-1.4); BASOPHILS % (AUTO) 0.3 % (0-2); EOSINOPHILS % (AUTO) 0.1 % (0-6); HEMATOCRIT 47.3 % (36.0-47.0); MEAN CORPUSCULAR HEMOGLOBIN 32.1 pg (27.0-33.4); MEAN CORPUSCULAR HGB CONC 33.8 g/dL (32.0-36.0); MEAN CORPUSCULAR VOLUME 95 fl (80-97); MONOCYTES % (AUTO) 5.9 % (3-13); PLATELET COUNT 222 10^3/uL (150-450); RED BLOOD COUNT 4.98 10^6/uL (3.72-5.28); RED CELL DISTRIBUTION WIDTH 14.3 % (11.5-14.0); SEGMENTED NEUTROPHILS % (AUTO) 69.7 % (42-78); TOTAL CELLS COUNTED % (AUTO) 100 %; WHITE BLOOD COUNT 7.1 10^3/uL (4.0-10.5)
[2019-10-10 00:35] LABS: ALBUMIN 4.7 g/dL (3.5-5.0); ALKALINE PHOSPHATASE 84 U/L (38-126); ANION GAP 11 (5-19); ASPARTATE AMINO TRANSFERASE 18 U/L (14-36); BILIRUBIN,TOTAL 0.9 mg/dL (0.2-1.3); BLOOD UREA NITROGEN 5 mg/dL (7-20); CALCIUM 9.6 mg/dL (8.4-10.2); CARBON DIOXIDE 27 mmol/L (22-30); CHLORIDE 103 mmol/L (98-107); GLUCOSE 113 mg/dL (75-110); POTASSIUM 4.3 mmol/L (3.6-5.0); TOTAL PROTEIN 7.5 g/dL (6.3-8.2)
--- NOTE | 2019-10-10 00:55 | RADIOLOGY REPORT (SQ) ---
EXAM DESCRIPTION: CT ABDOMEN PELVIS WITHOUT IV CONTRAST COMPLETED DATE/TME: 10/09/2019 23:48 CLINICAL HISTORY: flank pain COMPARISON: 03/22/2019 TECHNIQUE: CT of the abdomen and pelvis without IV contrast. Evaluation of the solid organs and vasculature is suboptimal due to lack of IV contrast. FINDINGS: Lung Bases: The visualized lung bases are clear. Bones: No destructive bone lesions identified. Abdomen: Liver: The liver has normal size and density. Gallbladder: No calcified gallstones. Spleen, Pancreas, and Adrenal Glands: The spleen, pancreas, and adrenal glands are unremarkable. Kidneys: Mild left hydronephrosis. Punctate bilateral nonobstructing nephrolithiasis. No obstructing ureteral calculus. Vasculature: The aorta and IVC have normal caliber. Stomach: The stomach and duodenum have normal course. Other: No free intraperitoneal air. No free fluid or lymphadenopathy. Pelvis: Bladder: Urinary bladder is unremarkable. Bowel: No dilated loops of large or small bowel. Appendix: Normal appendix. Pelvis: Uterus is not enlarged. IMPRESSION: 1. Mild left hydronephrosis without obstructing calculus identified. This may represent a recently passed ureteral calculus. 2. Punctate bilateral nonobstructing nephrolithiasis. This exam was performed according to our departmental dose-optimization program, which includes automated exposure control, adjustment of the mA and/or kV according to patient size and/or use of iterative reconstruction technique.
--- NOTE | 2019-10-10 02:01 | ER Document Report ---
ED GI/ - General Chief Complaint: Back Pain Stated Complaint: BACK/KIDNEY PAIN Time Seen by Provider: 10/09/19 23:45 Primary Care Provider: MICHELLE KNOTT DO [Primary Care Provider] - Follow up as needed Mode of Arrival: Ambulatory Information source: Patient Notes: 24-year-old female presented to ED for bilateral flank pain for the past 2 days. She states she has had a history of kidney stones and kidney infections. She has had a history of stents with stone removals. She has had a decreased appetite. She is been nausea and vomiting and pain with urination. She is alert oriented respirations regular nonlabored speaking in full sentences. She is in no acute distress at this time but she states she does have some discomfort with urination. Lungs are clear respirations regular nonlabored speaking in full sentences abdomen is soft with good bowel sounds. TRAVEL OUTSIDE OF THE [place] IN LAST 30 DAYS: No - HPI Patient complains to provider of: Flank pain Onset: Other - 2 days Timing/Duration: Gradual Quality of pain: Sharp Severity at maximum: Severe Severity in ED: Moderate Pain Level: 3 Location: Left flank, Right flank Vaginal bleeding (Compared to normal period): None LMP: 9 months ago Associated symptoms: Nausea, Vomiting, Other Exacerbated by: Movement Relieved by: Denies Similar symptoms previously: Yes Recently seen / treated by doctor: Yes - Related Data Allergies/Adverse Reactions: No Known Allergies Allergy (Unverified 08/30/16 14:43) Past Medical History - General Information source: Patient - Social History Smoking Status: Never Smoker Frequency of alcohol use: None Drug Abuse: None Lives with: Family Family History: Reviewed & Not Pertinent - Past Medical History Cardiac Medical History: Reports: None Pulmonary Medical History: Reports: None EENT Medical History: Reports: None Endocrine Medical History: Reports: None Renal/ Medical History: Reports: Hx Kidney Stones, Hx Ovarian Cysts Malignancy Medical History: Reports: None GI Medical History: Reports: None Musculoskeletal Medical History: Reports None Skin Medical History: Reports None Psychiatric Medical History: Reports: None Traumatic Medical History: Reports: None Infectious Medical History: Reports: None Past Surgical History: Reports: Hx Appendectomy, Hx Gynecologic Surgery - Multiple laparoscopic surgeries for ovarian cysts - Immunizations Hx Diphtheria, Pertussis, Tetanus Vaccination: Yes Review of Systems - Review of Systems Constitutional: No symptoms reported EENT: No symptoms reported Cardiovascular: No symptoms reported Respiratory: No symptoms reported Gastrointestinal: Nausea, Vomiting Genitourinary: Flank pain Female Genitourinary: No symptoms reported Musculoskeletal: No symptoms reported Skin: No symptoms reported Hematologic/Lymphatic: No symptoms reported Neurological/Psychological: No symptoms reported Physical Exam - Vital signs Vitals: Temp Pulse Resp BP Pulse Ox 97.9 F 94 20 149/89 H 100 10/09/19 23:41 10/09/19 23:41 10/09/19 23:41 10/09/19 23:41 10/09/19 23:41 Interpretation: Normal - General General appearance: Appears well, Alert - HEENT Head: Normocephalic, Atraumatic Eyes: Normal Pupils: PERRL - Respiratory Respiratory status: No respiratory distress Chest status: Nontender Breath sounds: Normal Chest palpation: Normal - Cardiovascular Rhythm: Regular Heart sounds: Normal auscultation Murmur: No - Abdominal Inspection: Normal Distension: No distension Bowel sounds: Normal Tenderness: Tender Organomegaly: No organomegaly - Back Back: Normal, CVA tenderness - Extremities General upper extremity: Normal inspection, Nontender, Normal color, Normal ROM, Normal temperature General lower extremity: Normal inspection, Nontender, Normal color, Normal ROM, Normal temperature, Normal weight bearing. No: Norah's sign - Neurological Neuro grossly intact: Yes Cognition: Normal Orientation: AAOx4 [place] Coma Scale Eye Opening: Spontaneous [place] Coma Scale Verbal: Oriented [place] Coma Scale Motor: Obeys Commands [place] Coma Scale Total: 15 Speech: Normal Motor strength normal: LUE, RUE, LLE, RLE Sensory: Normal - Psychological Associated symptoms: Normal affect, Normal mood - Skin Skin Temperature: Warm Skin Moisture: Dry Skin Color: Normal Course - Re-evaluation Re-evalutation: 10/10/19 02:15 Discussed results of labs and CAT scan with patient and written report of labs and CAT scan given to patient. Patient was treated with IV fluids Toradol and Zofran for her discomfort. She will be discharged home. She does not show any kidney stones on her CT but she does show there is some hydronephrosis to the left side with no obstructing stones at this time. Patient will be discharged h ome with instructions to follow-up with her primary care doctor. - Vital Signs Vital signs: Temp Pulse Resp BP Pulse Ox 98.0 F 80 20 135/85 H 100 10/10/19 03:13 10/10/19 03:13 10/10/19 03:13 10/10/19 03:13 10/10/19 03:13 - Laboratory Result Diagrams: 10/10/19 00:02 10/10/19 00:02 Laboratory results interpreted by me: 10/09/19 10/10/19 10/10/19 23:49 00:02 00:02 Hgb 16.0 H Hct 47.3 H RDW 14.3 H BUN 5 L Glucose 113 H Urine Blood SMALL H - Diagnostic Test Radiology reviewed: Image reviewed, Reports reviewed Discharge - Discharge Clinical Impression: Flank pain, Hydronephrosis, left Condition: Stable Disposition: HOME, SELF-CARE Additional Instructions: Flank Pain We weren't able to prove an exact cause for your flank pain. Pain in the flank can be caused by a muscle strain or spasm. Sometimes a kidney stone causes pain, but can't be found on our tests. Infection in the kidney should be evident on a urine test. Early shingles can occasionally cause flank pain, without the rash that proves the diagnosis. On rare occasions, disease of the pancreas, aorta, spleen, or colon can create pain in the flank. At this time, there's no evidence of a dangerous condition, and it seems safe for you to be at home. If the pain goes away and does not come back, no further testing will be needed. If pain persists, or becomes more severe, we may need to repeat some tests or order additional new testing. Blood in the urine, urgency to urinate frequently, and pain that radiates to the groin can indicate a kidney stone. Fever may mean that the pain is due to infection, either of the kidney or the colon (diverticulitis). If your pain is early shingles, you should develop an eruption of blisters in the painful area within a few days. Call the doctor or return if you have pain that is spreading or becoming more severe, pain that does not resolve with time, fever, or any other new symptoms. Toradol Injection You have been given an injection of ketorolac tromethamine (Toradol). This is an excellent, safe drug for pain control. It also has potent antiinflammatory action. You should have significant pain relief within about one hour. Toradol is not addicting and is non-sedating. It does not interfere with driving or work. Call or return if you develop itching, hives, shortness of breath, or rash. Antinausea Medication You have been given a medication to suppress nausea and vomiting. This type of medication can be given as a shot, pill, or suppository. It will usually last for many hours. Pills and shots usually last six to eight hours, suppositories last about 12 hours. For the typical illness, only one or two doses of the medication may be necessary. Mild lightheadedness may occur. This type of medicine can cause drowsiness. Do not drive or operate dangerous machinery while under its influence. Do not mix with alcohol. See your doctor at once if you have muscle spasms or tightness, or uncontrollable motions (particularly of the neck, mouth, or jaw). Persistent vomiting or severe lightheadedness should also be evaluated by the physician. Intravenous (IV) Fluids As part of your care today, you received intravenous (IV) fluids. IV fluids are administered to patients who are dehydrated or to those who have certain chemical (electrolyte) abnormalities that need correcting. FOLLOW-UP CARE: If you have been referred to a physician for follow-up care, call the physicians office for an appointment as you were instructed or within the next two days. If you experience worsening or a significant change in your symptoms, notify the physician immediately or return to the Emergency Department at any time for re-evaluation. Forms: Elevated Blood Pressure Referrals: MICHELLE KNOTT DO [Primary Care Provider] - Follow up as needed
[2019-10-10] MEDS ORDERED: KETOROLAC TROMETHAMINE INJ/PF 30 MG/1 ML SDV IV ONE (02:03)
[2019-10-10] MEDS ORDERED: ONDANSETRON HCL INJ/PF 4 MG/2 ML SDV IV ONE (02:03)
[2019-10-10 03:16] VITALS: BP 135/85
== END 2019-10-10 03:13 | disposition home or self-care (01) ==
LOC: ER 23:37
DX: N13.30 Unspecified hydronephrosis (principal); R10.9 Unspecified abdominal pain; Z63.0 Problems in relationship with spouse or partner; R11.2 Nausea with vomiting, unspecified; R30.9 Painful micturition, unspecified
CPT/HCPCS: 96376; 99284; 96361; 96374; 96375; 36415; 84703; 85025; 80053; 81001; 74176; J1885; J2405; J7120